=== PATIENT | male | born 2005 | race Caucasian/White ===

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

== ENCOUNTER 2024-12-01 00:13 | Emergency (ER) | payer MEDICAID, OTHER ==
[~2024-12-01] VITALS: Ht 177.8 cm; Wt 88.6 kg
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
[2024-12-01 02:00] VITALS: RESP 18; O2SAT 98
[2024-12-01] MEDS: BACITRACIN TOP OINT 1 UD PKG TOP ONE (02:00)
[2024-12-01 02:21] VITALS: BP 124/94; PULSE 102; RESP 18; TEMP 98.2; O2SAT 97
== END 2024-12-01 02:30 | disposition home or self-care (01) ==
LOC: ER 00:13
DX: T22.212A Burn of second degree of left forearm, initial encounter (principal); X08.8XXA Exposure to other specified smoke, fire and flames, initial encounter; Y93.89 Activity, other specified; Y92.89 Other specified places as the place of occurrence of the external cause; Y99.8 Other external cause status
CPT/HCPCS: 16000